=== PATIENT | male | born 1940 | race Caucasian/White ===

== ENCOUNTER 2024-09-03 11:30 | Inpatient (IN) | payer MEDICARE, OTHER ==
[2024-09-03 12:24] LABS: BASOPHILS PERCENT AUTO 0.3 % (0.3-3.8); EOSINOPHILS ABSOLUTE AUTO 0.1 x10-3/uL (0.0-0.6); EOSINOPHILS PERCENT AUTO 0.8 % (0.1-6.8); HEMATOCRIT 38.7 % (38.3-50.1); HEMOGLOBIN 13.2 g/dL (12.9-17.7); LYMPHOCYTES ABSOLUTE AUTO 0.8 x10-3/uL (0.5-4.5); LYMPHOCYTES PERCENT AUTO 11.8 % (15.8-45.3); MEAN CORPUSCULAR HEMOGLOBIN 28.6 pg (27.0-33.3); MEAN CORPUSCULAR HGB CONC 34.2 g/dL (28.7-35.3); MEAN CORPUSCULAR VOLUME 83.5 fL (80.8-98.7); MEAN PLATELET VOLUME 9.1 fL (6.7-11.0); MONOCYTES ABSOLUTE AUTO 0.8 x10-3/uL (0.0-1.2); MONOCYTES PERCENT AUTO 12.2 % (5.5-15.2); NEUTROPHILS ABSOLUTE AUTO 4.8 x10-3/uL (1.7-6.9); NEUTROPHILS PERCENT AUTO 74.9 % (40.3-71.8); PLATELET COUNT,PLT 154 x10(3)uL (117-477); RED BLOOD CELL COUNT 4.63 x10(6)uL (3.90-5.90); RED CELL DISTRIBUTION WIDTH 14.9 % (12.4-15.0); WHITE BLOOD CELL COUNT,WBC 6.4 x10-3/uL (3.2-10.1)
[2024-09-03 12:30] LABS: APPEARANCE,URINE SLIGHTLY CLOUDY (CLEAR); BILIRUBIN,URINE NEGATIVE (NEGATIVE); COLOR,URINE YELLOW (YELLOW); GLUCOSE,URINE NORMAL (NORMAL); KETONES,URINE NEGATIVE (NEGATIVE); LEUKOCYTE ESTERASE,URINE NEGATIVE (NEGATIVE); NITRITE,URINE NEGATIVE (NEGATIVE); OCCULT BLOOD,URINE MODERATE (NEGATIVE); PH,URINE 6.5 (5.0-6.5); PROTEIN,URINE 30 mg/dL (NEGATIVE); UROBILINOGEN,URINE NORMAL (NEGATIVE)
[2024-09-03 12:33] LABS: A/G RATIO 0.9; ALANINE AMINOTRANSFERASE,ALT 10 U/L (12-36); ALBUMIN 3.4 g/dL (3.2-4.6); ALKALINE PHOSPHATASE 73 IU/L (56-112); ASPARTATE AMNIOTRANSFERASE,AST 11 IU/L (5-25); BILIRUBIN TOTAL 1.3 mg/dL (0.1-1.3); BLOOD UREA NITROGEN,BUN 16 mg/dL (7-18); BUN/CREATININE RATIO 14.5 (9-20); CALCIUM 8.8 mg/dL (8.6-10.2); CARBON DIOXIDE,CO2 32 mmol/L (21-32); CHLORIDE,CL 102 mmol/L (100-110); CREATINE KINASE,CK 113 IU/L (60-160); CREATININE 1.1 mg/dL (0.70-1.30); ESTIMATED GFR 67 mL/min (>60); GLUCOSE RANDOM 126 mg/dL (80-116); MAGNESIUM 1.7 mg/dL (1.8-2.5); PROTEIN TOTAL,TP 7.1 g/dL (6.0-8.0); SODIUM,NA 142 mmol/L (135-145)
[2024-09-03 12:35] LABS: TROPONIN I 24.4 pg/mL (4.0-60.3)
[2024-09-03 12:46] LABS: C-REACTIVE PROTEIN 5.31 mg/dL (<0.50); POTASSIUM,K 2.8 mmol/L (3.5-5.3)
[2024-09-03 12:50] LABS: WBC,URINE 0-5 (0-5)
[2024-09-03 12:51] LABS: BACTERIA,URINE FEW (NS); SQUAMOUS EPITHELIAL CELLS,UR RARE (NS,R,O)
[2024-09-03] MEDS: Sodium Chloride 0.9% 1,000 ML IV SCH (13:22)
[2024-09-03] MEDS: Potassium Chloride 20 MEQ Tab.ER PO ONE (13:22)
[2024-09-03] MEDS: Enoxaparin 40 MG/0.4 ML Syringe SUBCUT SCH (18:32)
[2024-09-03] MEDS: Acetaminophen 325 MG Tab PO PRN (20:58)
[2024-09-03] MEDS: Haloperidol Lactate 5 MG/ML SDV IVPUSH ONE (22:05)
[2024-09-04] MEDS: LORazepam 2 MG/ML SDV IVPUSH ONE (00:38)
[2024-09-04 06:53] LABS: BLOOD UREA NITROGEN,BUN 10 mg/dL (7-18); BUN/CREATININE RATIO 14.3 (9-20); CALCIUM 6.7 mg/dL (8.6-10.2); CARBON DIOXIDE,CO2 25 mmol/L (21-32); CHLORIDE,CL 110 mmol/L (100-110); CREATININE 0.7 mg/dL (0.70-1.30); EST CRCL DRUG DOSING (CG) 85.16 mL/min; ESTIMATED GFR 91 mL/min (>60); GLUCOSE RANDOM 75 mg/dL (80-116); SODIUM,NA 145 mmol/L (135-145)
[2024-09-04 07:01] LABS: POTASSIUM,K 2.1 mmol/L (3.5-5.3)
[2024-09-04] MEDS: Potassium Chloride 20 MEQ Tab.ER PO ONE (11:03)
[2024-09-04] MEDS: QUEtiapine 25 MG Tab PO PRN (16:52)
[2024-09-04] MEDS: Potassium Chloride 20 MEQ Tab.ER PO SCH (20:04)
[2024-09-04] MEDS ORDERED: QUEtiapine 25 MG Tab PO SCH (21:00)
[2024-09-04] MEDS: OLANZapine 10 MG Vial IM ONE (23:48)
[2024-09-05 06:32] LABS: BLOOD UREA NITROGEN,BUN 14 mg/dL (7-18); CALCIUM 8.9 mg/dL (8.6-10.2); CARBON DIOXIDE,CO2 28 mmol/L (21-32); CHLORIDE,CL 104 mmol/L (100-110); EST CRCL DRUG DOSING (CG) 59.61 mL/min; ESTIMATED GFR 75 mL/min (>60); GLUCOSE RANDOM 121 mg/dL (80-116); SODIUM,NA 143 mmol/L (135-145)
[2024-09-05] MEDS: Potassium Chloride 20 MEQ Tab.ER PO SCH (10:51)
[2024-09-05] MEDS: QUEtiapine 25 MG Tab PO PRN (14:56)
[2024-09-05] MEDS: QUEtiapine 25 MG Tab PO SCH (22:04)
[2024-09-05] MEDS: Sodium Chloride 0.9% 1,000 ML IV SCH (23:30)
[2024-09-06 07:04] LABS: BLOOD UREA NITROGEN,BUN 22 mg/dL (7-18); BUN/CREATININE RATIO 11.6 (9-20); CARBON DIOXIDE,CO2 30 mmol/L (21-32); CHLORIDE,CL 107 mmol/L (100-110); CREATININE 1.9 mg/dL (0.70-1.30); EST CRCL DRUG DOSING (CG) 31.38 mL/min; ESTIMATED GFR 35 mL/min (>60); GLUCOSE RANDOM 112 mg/dL (80-116); POTASSIUM,K 3.8 mmol/L (3.5-5.3); SODIUM,NA 146 mmol/L (135-145)
[2024-09-06] MEDS: QUEtiapine 25 MG Tab PO SCH (09:09)
[2024-09-06] MEDS: Potassium Chloride 20 MEQ Tab.ER PO SCH (09:09)
[2024-09-06] MEDS: Sodium Chloride 0.9% 10 ML Syringe FLUSH PRN (21:10)
[2024-09-06] MEDS: LORazepam 2 MG/ML SDV IVPUSH ONE ×2 (21:10→23:59)
[2024-09-07 06:26] LABS: BASOPHILS ABSOLUTE AUTO 0.1 x10-3/uL (0.0-0.3); BASOPHILS PERCENT AUTO 0.8 % (0.3-3.8); EOSINOPHILS ABSOLUTE AUTO 0.2 x10-3/uL (0.0-0.6); EOSINOPHILS PERCENT AUTO 2.4 % (0.1-6.8); HEMATOCRIT 42.9 % (38.3-50.1); HEMOGLOBIN 14.8 g/dL (12.9-17.7); LYMPHOCYTES ABSOLUTE AUTO 0.9 x10-3/uL (0.5-4.5); LYMPHOCYTES PERCENT AUTO 13.9 % (15.8-45.3); MEAN CORPUSCULAR HGB CONC 34.5 g/dL (28.7-35.3); MEAN CORPUSCULAR VOLUME 81.2 fL (80.8-98.7); MEAN PLATELET VOLUME 8.2 fL (6.7-11.0); MONOCYTES ABSOLUTE AUTO 0.8 x10-3/uL (0.0-1.2); NEUTROPHILS ABSOLUTE AUTO 4.6 x10-3/uL (1.7-6.9); NEUTROPHILS PERCENT AUTO 70.9 % (40.3-71.8); PLATELET COUNT,PLT 205 x10(3)uL (117-477); RED BLOOD CELL COUNT 5.28 x10(6)uL (3.90-5.90); RED CELL DISTRIBUTION WIDTH 15.1 % (12.4-15.0); WHITE BLOOD CELL COUNT,WBC 6.5 x10-3/uL (3.2-10.1)
[2024-09-07 06:37] LABS: A/G RATIO 0.8; ALANINE AMINOTRANSFERASE,ALT 17 U/L (12-36); ALBUMIN 3.4 g/dL (3.2-4.6); ALKALINE PHOSPHATASE 79 IU/L (56-112); ASPARTATE AMNIOTRANSFERASE,AST 28 IU/L (5-25); BILIRUBIN TOTAL 1.1 mg/dL (0.1-1.3); BLOOD UREA NITROGEN,BUN 20 mg/dL (7-18); BUN/CREATININE RATIO 15.4 (9-20); CALCIUM 8.9 mg/dL (8.6-10.2); CARBON DIOXIDE,CO2 28 mmol/L (21-32); CHLORIDE,CL 105 mmol/L (100-110); CREATININE 1.3 mg/dL (0.70-1.30); EST CRCL DRUG DOSING (CG) 45.86 mL/min; ESTIMATED GFR 55 mL/min (>60); GLUCOSE RANDOM 113 mg/dL (80-116); POTASSIUM,K 3.3 mmol/L (3.5-5.3); PROTEIN TOTAL,TP 7.8 g/dL (6.0-8.0); SODIUM,NA 144 mmol/L (135-145)
[2024-09-07] MEDS: D5 1/2 NS w/ 10 mEq/L KCl 1,000 ML IV SCH (09:50)
[2024-09-07 09:57] LABS: BILIRUBIN,URINE NEGATIVE (NEGATIVE); GLUCOSE,URINE NORMAL (NORMAL); KETONES,URINE NEGATIVE (NEGATIVE); LEUKOCYTE ESTERASE,URINE NEGATIVE (NEGATIVE); NITRITE,URINE NEGATIVE (NEGATIVE); OCCULT BLOOD,URINE MODERATE (NEGATIVE); PROTEIN,URINE 30 mg/dL (NEGATIVE); UROBILINOGEN,URINE NORMAL (NEGATIVE)
[2024-09-07 10:24] LABS: APPEARANCE,URINE CLEAR (CLEAR); BACTERIA,URINE RARE (NS); COLOR,URINE YELLOW (YELLOW); RBC,URINE 0-5 (0-5); SQUAMOUS EPITHELIAL CELLS,UR RARE (NS,R,O)
[2024-09-07] MEDS: QUEtiapine 25 MG Tab PO SCH (20:10)
[2024-09-07] MEDS: Divalproex Sodium Delayed-Release 250 MG Tab.CR PO SCH (20:10)
[2024-09-08 06:29] LABS: BLOOD UREA NITROGEN,BUN 15 mg/dL (7-18); BUN/CREATININE RATIO 13.6 (9-20); CALCIUM 8.8 mg/dL (8.6-10.2); CARBON DIOXIDE,CO2 29 mmol/L (21-32); CHLORIDE,CL 101 mmol/L (100-110); CREATININE 1.1 mg/dL (0.70-1.30); EST CRCL DRUG DOSING (CG) 54.19 mL/min; ESTIMATED GFR 67 mL/min (>60); GLUCOSE RANDOM 139 mg/dL (80-116); POTASSIUM,K 3.7 mmol/L (3.5-5.3); SODIUM,NA 138 mmol/L (135-145)
== END 2024-09-10 09:30 | DRG 640 ==
LOC: FB.ED 11:30 → FB.MS 15:18
PROVIDERS: ADMIT Family Medicine; ATTEND Internal Medicine
DX: E86.0 Dehydration (principal); I21.3 ST elevation (STEMI) myocardial infarction of unspecified site; F05 Delirium due to known physiological condition; F03.C18 Unspecified dementia, severe, with other behavioral disturbance; Z66 Do not resuscitate; Z51.5 Encounter for palliative care; R29.6 Repeated falls; E78.00 Pure hypercholesterolemia, unspecified; E87.6 Hypokalemia; M19.90 Unspecified osteoarthritis, unspecified site; R53.1 Weakness; R26.9 Unspecified abnormalities of gait and mobility; M25.562 Pain in left knee; I12.9 Hypertensive chronic kidney disease with stage 1 through stage 4 chronic kidney disease, or unspecified chronic kidney disease; I49.1 Atrial premature depolarization; I25.2 Old myocardial infarction; N18.9 Chronic kidney disease, unspecified; Z87.11 Personal history of peptic ulcer disease; Z87.891 Personal history of nicotine dependence; F17.200 Nicotine dependence, unspecified, uncomplicated; Z79.899 Other long term (current) drug therapy
CPT/HCPCS: 36415; 70450; 71045; 80053; 81001 ×2; 82550; 83605; 83735; 84484; 85025; 86140; 93005; 93010; 99285 ×2; A9270; J7030; 71046; 73502-RT; 73560-LT; 80048; 83880; 87426-QW; 99223; 99232; 99233; 99238; J1630; J1650; J2060; J2359; J3480

== ENCOUNTER 2024-09-12 02:20 | Emergency (ER) | payer MEDICARE, OTHER ==
[2024-09-12] MEDS: Haloperidol Lactate 5 MG/ML SDV IM ONE (02:37)
[2024-09-12 03:45] LABS: BASOPHILS ABSOLUTE AUTO 0.1 x10-3/uL (0.0-0.3); BASOPHILS PERCENT AUTO 0.8 % (0.3-3.8); EOSINOPHILS ABSOLUTE AUTO 0.2 x10-3/uL (0.0-0.6); EOSINOPHILS PERCENT AUTO 1.8 % (0.1-6.8); HEMATOCRIT 39.9 % (38.3-50.1); HEMOGLOBIN 13.7 g/dL (12.9-17.7); LYMPHOCYTES PERCENT AUTO 10.7 % (15.8-45.3); MEAN CORPUSCULAR HGB CONC 34.4 g/dL (28.7-35.3); MEAN CORPUSCULAR VOLUME 81.5 fL (80.8-98.7); MEAN PLATELET VOLUME 8.4 fL (6.7-11.0); MONOCYTES ABSOLUTE AUTO 0.8 x10-3/uL (0.0-1.2); MONOCYTES PERCENT AUTO 8.6 % (5.5-15.2); NEUTROPHILS ABSOLUTE AUTO 7.2 x10-3/uL (1.7-6.9); NEUTROPHILS PERCENT AUTO 78.1 % (40.3-71.8); PLATELET COUNT,PLT 252 x10(3)uL (117-477); RED CELL DISTRIBUTION WIDTH 15.1 % (12.4-15.0); WHITE BLOOD CELL COUNT,WBC 9.3 x10-3/uL (3.2-10.1)
[2024-09-12 03:48] LABS: BLOOD UREA NITROGEN,BUN 36 mg/dL (7-18); CALCIUM 9.1 mg/dL (8.6-10.2); CARBON DIOXIDE,CO2 27 mmol/L (21-32); CHLORIDE,CL 103 mmol/L (100-110); CREATININE 1.2 mg/dL (0.70-1.30); ESTIMATED GFR 60 mL/min (>60); GLUCOSE RANDOM 125 mg/dL (80-116); POTASSIUM,K 3.7 mmol/L (3.5-5.3); SODIUM,NA 140 mmol/L (135-145)
[2024-09-12 04:09] LABS: BILIRUBIN,URINE NEGATIVE (NEGATIVE); GLUCOSE,URINE NORMAL (NORMAL); KETONES,URINE 15 mg/dL (NEGATIVE); LEUKOCYTE ESTERASE,URINE NEGATIVE (NEGATIVE); NITRITE,URINE NEGATIVE (NEGATIVE); OCCULT BLOOD,URINE LARGE (NEGATIVE); PROTEIN,URINE 30 mg/dL (NEGATIVE); UROBILINOGEN,URINE 1 mg/dL (NEGATIVE)
[2024-09-12 04:10] LABS: APPEARANCE,URINE SLIGHTLY CLOUDY (CLEAR); COLOR,URINE YELLOW (YELLOW)
[2024-09-12 04:19] LABS: BACTERIA,URINE MODERATE (NS); HYALINE CASTS,URINE FEW (NS); WBC,URINE 0-5 (0-5)
[2024-09-12] MEDS ORDERED: cefTRIAXone 1 GM Vial IM ONE (04:29)
[2024-09-12] MEDS: cefTRIAXone 1 GM Vial IM ONE (04:41)
== END 2024-09-12 05:12 ==
LOC: FB.ED 02:20
DX: F03.C0 Unspecified dementia, severe, without behavioral disturbance, psychotic disturbance, mood disturbance, and anxiety (principal); N39.0 Urinary tract infection, site not specified; I10 Essential (primary) hypertension; N18.9 Chronic kidney disease, unspecified; I12.9 Hypertensive chronic kidney disease with stage 1 through stage 4 chronic kidney disease, or unspecified chronic kidney disease; Z79.899 Other long term (current) drug therapy
CPT/HCPCS: 36415; 80048; 81001; 85025; 87086; 96372; 99285; A4353; J0696; J1630